=== PATIENT | female | born 2000 | race Caucasian/White ===

== ENCOUNTER 2020-06-01 12:33 | Outpatient (CLI) | payer OTHER, SELFPAY ==
--- NOTE | 2020-06-01 | ECHO_ITS ---
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 Left ventricular chamber dimension is normal. 2. Left ventricular systolic function is normal, estimated at 65-70%. 3. There is no increased left ventricular wall thickness. 4. The left ventricular diastolic function is normal. 5. Right ventricular chamber dimension is mildly enlarged. 6. There is mild mitral valve regurgitation. 7. The mitral valve has thickened leaflets. 8. There is mild tricuspid valve regurgitation. Left Ventricle Left ventricular chamber dimension is normal. Left ventricular systolic function is normal, estimated at 65-70%. There is no increased left ventricular wall thickness. The left ventricular diastolic function is normal. Right Ventricle Right ventricular chamber dimension is mildly enlarged. Right ventricular systolic function is normal. Left Atria Left atrial chamber dimension is normal. Right Atria Right atrial chamber dimension is normal. Atrial Septum Intact interatrial septum visualized by color flow imaging. Aortic Valve The aortic valve is probable trileaflet. There is no aortic valve stenosis. There is trace aortic valve regurgitation. Pulmonic Valve The pulmonic valve is normal. There is no pulmonic valve stenosis. There is trace pulmonic regurgitation. Mitral Valve The mitral valve has thickened leaflets. There is no mitral valve stenosis. There is mild mitral valve regurgitation. Tricuspid Valve The tricuspid valve leaflets are normal. There is no significant tricuspid valve stenosis. There is mild tricuspid valve regurgitation. No pulmonary hypertension, estimated pulmonary arterial systolic pressure is 30 mmHg. Pericardium/Pleural The pericardium appears normal. There is no pericardial effusion. Inferior Vena Cava Normal inferior vena cava with >50% collapse upon inspiration consistent with normal right atrial pressure, 5 mmHg. Aorta The aortic root size at the sinus of Valsalva is normal. Left Ventricular Outflow Tract Name Value Normal LVOT 2D LVOT Diameter 1.9 cm LVOT Doppler LVOT Peak Gradient 7 mmHg LVOT Mean Gradient 4 mmHg LVOT VTI 30 cm LVOT VTI/AV VTI Ratio 1.0 LVOT Stroke Volume 82 ml LVOT CO 5.4 l/min LVOT CI 3.2 l/min/m2 Pulmonic Valve Name
== END 2020-06-01 12:34 | disposition home or self-care (01) ==
PROVIDERS: PCP Nurse Practitioner Adult Health; Visit Provider Nurse Practitioner Adult Health
DX: Q21.9 Congenital malformation of cardiac septum, unspecified (principal); I51.7 Cardiomegaly
CPT/HCPCS: 93306

== ENCOUNTER 2024-06-17 03:43 | Emergency (ER) | payer OTHER, MEDICAID, SELFPAY ==
--- NOTE | ~2024-06-17 | CT_ITS ---
Non-contrast Head CT History: Seizure, colonic activity Technique: Axial non-contrast imaging of the brain was performed. Dose reduction technique was used on this scan by utilizing automated exposure control and iterative reconstruction technique. The dose -length product (DLP) was 605.33 mGy-cm. Findings: There is no evidence of intracranial hemorrhage, mass lesion, or acute infarct. Focal hypo density adjacent to the frontal horn of the left lateral ventricle. Probable focal dilated perivascul ar space in the left basal ganglia versus lacunar infarct. The ventricles and subarachnoid spaces are normal in size. The calvarium appears normal. The visualized paranasal sinuses and mastoid air shi ls are clear. Impression: Nonspecific hypodensity in the white matter adjacent to the frontal horn of the left lateral ventricl e. This could reflect early onset chronic microvascular ischemic change or chronic ischemic insult. M R can be considered for further evaluation as indicated. Reviewed, dictated and finalized at location M. Impression: Nonspecific hypodensity in the white matter adjacent to the frontal horn of the left lateral ventricle. This could reflect early onset chronic microvascular i schemic change or chronic ischemic insult. MR can be considered for further kolby luation as indicated.
--- NOTE | ~2024-06-17 | CT_ITS ---
CT of the Abdomen and Pelvis: Indication: Abdominal pain Technique: 2.5 mm axial scans were obtained through the abdomen and pelvis following intravenous adm inistration of 100 cc of Omnipaque 350. Dose reduction technique was used on this scan by utilizing a utomated exposure control and iterative reconstruction technique. The dose-length product (DLP) was 6 38.94 mGy-cm. Findings: Scans through the lung bases are unremarkable. The liver, spleen, pancreas, gallbladder, adrenals and kidneys are within normal limits. No evidence of aortic aneurysm. No lymphadenopathy. Questionable mild wall thickening of the descending and sigmoid colon versus underdistention. No blank l obstruction. Images through the pelvis were performed. Suspected mild diffuse urinary bladder wall thickening. Rig ht ovarian cyst versus right hydrosalpinx measuring approximately 2.8 cm in length. No ascites. Impression: Questionable mild wall thickening of the descending and sigmoid colon, versus underdistention. Correl ate for infectious/inflammatory colitis. Right ovarian cyst versus right hydrosalpinx. Reviewed, dictated and finalized at location . Impression: Questionable mild wall thickening of the descending and sigmoid colon, versus u nderdistention. Correlate for infectious/inflammatory colitis. Right ovarian cyst versus right hydrosalpinx.
--- OUTSIDE RECORDS SUMMARY | 2024-06-17 03:46 | XMS_ITS | Data Portability ---
Author Organization [place] [facility], Main Office Address [address] [place] [address] Assessment Encounter Date Assessment Date Assessment LastModified by Organization Details LastModified Time 12/05/2022 12/05/2022 The patient gave verbal consent using TeleHealth services and the consent is documented in the medical record prior to using the service. The patient has been informed of what a TeleMedicine visit is. Patient is located at home. Provider is located at office. Names and roles of persons in addition to the patient and provider participating in telemedicine services include mother. The patient had a 8 minute TeleMedicine consultation via [employer] to discuss the following: [email or web address] Not available 12/05/2022 20:17:07 Plan of Treatment Reminders Order Date Submit Date Provider Last Modified By Organization Details Last Modified Time Details Appointments None recorded. Lab TSH + free T4, serum 2022 023 [facility], [address] [place] [address], [address], 3 11:25:07 T3, free, serum or plasma 2022 023 [facility], [address] [place] [address], [address], 3 17:37:24 CMP, serum or plasma 2022 023 [facility], [address] [place] [address] [place], [address], 3 11:25:07 thyroid peroxidase (tpo) Ab, serum 2022 023 [facility], [address] [place] [address] [place], [address], 17:37:24 vitamin B12 + folate, serum or blood 2022 023 [facility], [address] [facility], [place], [address], 11:25:07 Referral endocrinol ogy referral 2022 023 SHEA Chapman MD, [address],, [facility] [address], [address], 20:20:44 Procedures None recorded. Surgeries None recorded. Imaging None recorded. Medication Orders Unithroid 50 mcg tablet 2022 023 [id number], [address] [place], [place], [id number], 20:17:39 Creon 36,000 unit-114,0 00 unit-180,0 00 unit capsule,de layed release [email or web address] [place] [address] [id number], [address] [place], [place], [id number], 17:15:00 Patient TargetsNo targets recorded. Patient Instructions Encounter Date Encounter Id Patient Instructions Last Modified By Organization Details Last Modified Time 12/05/2022 [id number] Due to the COVID-19 (Novel Coronavirus) pandemic, it is within this context (and with the understanding that this method of patient encounter is in the patient s best interest as well as the health and safety of other patients and the public) that telehealth is being provided for this patient encounter rather than a gonm-cu-joxl visit. This patient encounter is appropriate at this time. This patient has been advised of the potential risks and limitations of this mode of treatment (including, but not limited to, the absence of in-person examination) and has agreed to be treated in a remote fashion despite these risks. Any and all of the patient s/patient s family s questions on this issue have been answered, and I have made no promises or guarantees to the patient. The patient has also been advised to contact this office for worsening conditions or problems, and seek emergency medical treatment and/or call 911 if the patient deems either necessary. HPI and/or vitals, if listed, were provided by the patient. Due to the nature of telemedicine, the ability to do physical assessment was limited to what can be accomplished by patient directed telehealth visit based on instruction. Those limits are understood by the patient and myself. Impression is based on history, available information, and physical findings accomplished with telehealth visit. Chronic disease/problem list/medication list reviewed and updated where indicated. Discussed diagnosis, plan including risks, benefits and options of treatment. Advised to call for new, worsening or persistent symptoms. Level of patient risk was of low to mild complexity due to the documented nature of presentation, the information assessment required and the nature of the development of an evaluation and treatment plan as documented. PMH, FHx, SHx, Surgical Hx, Quality Management review carried out and addressed as documented today as part of this visit. Medication list was reviewed and adjusted as indicated. Medication requiring a refill was addressed. Risk and benefits of any new medications were discussed and all questions were answered. [email or web address] Not available 12/05/2022 20:20:30 Reason for Referral Endocrinology Referral for H ypothyroidism Referring Physician: Katelin Luong, Endocrinology, Encounter Date: 12/05/2022 Results Created Date Observation Date Name Description Value Unit Range Abnormal Flag Note LastModifiedBy Organization Detail LastModifiedTime 05/31/19 22 05/30/2021 urina lysis , dipst ick Leukocytes (reference range: negative abdelrahman/ l) Negati ve Not Available [facility] , [address], [place], [address], 05/30/2021 11:09:05 05/31/19 22 05/30/2021 urina lysis , dipst ick Nitrite (reference rage: negative mg/dl) negati ve Not Available [facility], [place], [address], 05/30/2021 11:09:05 05/31/19 22 05/30/2021 urina lysis , dipst ick Urobilinogen (reference range: 0.2-1 mg/dl) 0.2 Not Available [address] , [address], [place], [address], 05/30/2021 11:09:05 05/31/19 22 05/30/2021 urina lysis , dipst ick Protein (reference range: negative mg/dl) Negati ve Not Available [address] , [address], [place], [address], 05/30/2021 11:09:05 05/31/19 22 05/30/2021 urina lysis , dipst ick pH (reference range: 5-7) 6.5 Not Available [address] , [address], [place], [address], 05/30/2021 11:09:05 05/31/19 22 05/30/2021 urina lysis , dipst ick Blood (reference range: negative James/ l) Negati ve Not Available [address] , [address], [place], [address], 05/30/2021 11:09:05 05/31/19 22 05/30/2021 urina lysis , dipst ick Specific [place] (reference range: 1.005-1.030) 1.025 Not Available [address] , [address], [place], [address], 05/30/2021 11:09:05 05/31/19 22 05/30/2021 urina lysis , dipst ick Ketone (reference range: negative mg/dl) Negati ve Not Available [address] , [address], [place], [address], 05/30/2021 11:09:05 05/31/19 22 05/30/2021 urina lysis , dipst ick Bilirubin (reference range: negative mg/dl) Negati ve Not Available [address] , [address], [place], [address], 05/30/2021 11:09:05 05/31/19 22 05/30/2021 urina lysis , dipst ick Glucose (reference range: negative mg/dl) Negati ve Not Available [address] , [address], [place], [address], 05/30/2021 11:09:05 05/31/19 22 05/30/2021 urina lysis , dipst ick Appearance Clear Not Available [address] , [address], [place], [address], 05/30/2021 11:09:05 05/31/19 22 05/30/2021 urina lysis , dipst ick Color Yellow Not Available [address], [place], [address], 05/30/2021 11:09:05 Result Notes None recorded. 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 [facility] Not Available [facility] 3 21:50:06 Transient cerebral ischemia 487205211 Active 2014 TIA vs CVA 5 years ago. Started on aspirin afterwards . Last f/u about 2017 Not Available [facility] 3 21:50:07 Hypothyro idism 52239290 Active 2021 [facility] 21:50:07 Bacterial vaginosis 368265848 Active 2019 Recurrent bacterial vaginosis. 3 eipsodes in past few months. Followed by Dr. Mendoza in [place] Not Available [facility] 3 21:50:07 Low blood pressure 61933281 Active 2021 [facility] 3 21:50:07 Exocrine pancreati c insuffici ency 70282693 Active 2021 Not Available [facility] 3 21:50:07 Anxiety 79862785 Active 2020 [facility] Available [facility] 3 21:50:07 Diarrhea 43857106 Active 2021 Not Available [facility] 3 21:50:07 Rheumatoi d arthritis 38191398 Active 2004 Onset age 3 to 14 yos. Used mutiple meds (Remicade most recent 2014) [facility] Not Available [facility] 3 21:50:07 Problem Notes None recorded. Procedures Surgical History Date Name Laterality Status Provider Name and Address Organization Details Recorded Time assessment using ABCD2 Score for transient ischemic attack completed Not Available [facility] 05/03/2022 21:49:02 procedure on heart completed Not Available [facility] 05/03/2022 21:49:02 Imaging Results None recorded. Procedure Notes None recorded. Medical Equipment None Reported. Allergies Allergen ID Allergen Name Allergen Category Reaction Reaction Severity Criticality Documentation Date Start Date Code Code System Note Provider Name and Address Organization Details Recorded Time 56926 lactose food,medi cation Not available Not available Not available 05/03/2022 6211 RxNorm Not Available [facility] 3 21:51:07 87724 amoxicill in medicatio n hives severe Not available 05/03/2022 723 RxNorm Not Available [facility] 3 21:51:07 Medications Name Sig Start Date Stop Date Status Note LastModified by Organization Details LastModified Time azithromyci n 250 mg tablet TAKE 2 TABLETS (500 MG) BY ORAL ROUTE ONCE DAILY FOR 1 DAY THEN 1 TABLET (250 MG) BY ORAL ROUTE ONCE DAILY FOR 4 DAYS active Not Available Not Available No t Available metronidazo le 500 mg tablet 04/27 completed Not Available Not Available Not Available Unithroid 50 mcg tablet active Not Available Not Available Not Available sertraline 25 mg tablet TAKE 1 TABLET BY MOUTH EVERY DAY AT BEDTIME 06/15 completed Not Available Not Available Not Available Unithroid 25 mcg tablet TAKE 1 TABLET BY MOUTH THREE TIMES DAILY DIRECTED ALTERNATI NG WITH 50 MCG 06/15 completed Not Available Not Available Not Available colestipol 1 gram tablet TAKE 1 TABLET BY MOUTH DAILY. DO NOT TAKE OTHER DRUGS AT LEAST 1 HOUR BEFORE OR 4 HOURS AFTER COLESTIPO L 06/15 completed Not Available Not Available Not Available dicyclomine 10 mg capsule TAKE 1 CAPSULE BY MOUTH TWICE DAILY NEEDED 06/15 completed Not Available Not Available Not Available rosuvastati n 5 mg tablet 04/27 completed Not Available Not Available Not Available ramelteon 8 mg tablet Take by oral route for 30 days. 06/15 completed Not Available Not Available Not Available Asprin Ec Low Dose 80 MG PO ONCE DAILY 2019 active OTC Not Available Not Available Not Avai lable Creon 36,000 unit-114,00 0 unit-180,00 0 unit capsule,del ayed release TAKE 1 CAPSULE BY MOUTH WITH EACH MEAL x 90 days 12/05 completed Not Available Not Available Not Available Viberzi 75 mg tablet Take 1 tablet every day by oral route with meals. active Not Available Not Available No t Available Fiber Gummies 2 gram chewable tablet Take 2 tablets twice a day by oral route in the morning. active Not Available Not Available No t Available melatonin 5 mg chewable tablet Take 5 mg every day by oral route at bedtime. active Not Available Not Available No t Available Zenpep 40,000 unit-126,00 0 unit-168,00 0 unit capsule,del ayed release TAKE 1 CAPSULE BY MOUTH THREE TIMES DAILY BEFORE MEALS 06/15 completed Not Available Not Available Not Available Flucelvax Quad (PF) 60 mcg (15 mcg x 4)/0.5 mL IM syringe ADM 0.5ML IM UTD 04/27 completed Not Available Not Available Not Available Vitals Date Recorded Body mass index (BMI) Body height Oxygen saturation Oxygen saturation in Arterial blood by Pulse oximetry Heart rate Body temperature Body weight Systolic blood pressure Diastolic blood pressure Provider Name and Address Organization Details Last Updated DateTime 2 27.5 kg/m2 165.1 cm 99 % 99 % 77 /min 97.8 [degF] 75762.7 4 g 90 mm[Hg] 70 mm[Hg] Not Available [facility] 3 21:49:07 Date Recorded Body height Provider Name an d Address Organization Details Last Updated DateTime 01/25/2022 165.1 cm Not Available [facility] 3 21:49:08 Date Recorded Body height Body mass index (BMI) Body weight Body temperature Respiratory rate Heart rate Systolic blood pressure Diastolic blood pressure Provider Name and Address Organization Details Last Updated DateTime 3 165.1 cm 27.6 kg/m2 67391.3 3 g 97.7 [degF] 18 /min 66 /min 97 mm[Hg] 63 mm[Hg] AMARIS Cheung [employer] 3 17:21:42 Date Recorded Body height Body mass index (BMI) Body weight Provider Name and Address Organization Details Last Updated DateTime 12/05/2022 165.1 cm 27.5 kg/m2 35428.74 g joseph garrido [employer] 12/05/2022 17:17:04 Social History Question Answer Notes LastModified by Organizat ion Details LastModified Time Tobacco Smoking Status Never Smoker Not Available [facility] 05/03/2022 21:48:45 Do You Have An Advance Directive? No [id number] Information not available 05/03/2022 What Is Your Level Of Alcohol Consumption? None [id number] Information not available 05/03/2022 What Is Your Level Of Caffeine Consumption? Occasional [id number] Information not available 05/03/2022 In The 14 Days Before Symptom Onset, Have You Had Close Contact With A Laboratory-confirm ed COVID-19 While That Case Was Ill? No [id number] Information not available 05/03/2022 In The 14 Days Before Symptom Onset, Have You Had Close Contact With A Person Who Is Under Investigation For COVID-19 While That Person Was Ill? No [id number] Information not available 05/03/2022 What Type Of Diet Are You Following? REGULAR [id number] Information not available 05/03/2022 Do You Have A Medical Power Of Employment Adjudicator? No [id number] Information not available 05/03/2022 Do You Use Any Illicit Or Recreational Drugs? No [id number] Information not available 05/03/2022 Have You Recently Traveled Abroad? No [id number] Information not available 05/03/2022 Sex: Female Functional Status Question Answer Note LastModified by Organizat ion Details LastModified Time What is your exercise level? None [id number] Information not available 05/03/2022 Mental Status None recorded. Family History Relationship Description Onset Age of this Age Resolved Age Notes LastModified by Organization Details LastModified Time Maternal Grandmother Family history of malignant neoplasm breast cancer , kidney cancer [id number] Not available 05/03/2022 21:49:02 Maternal Grandmother Chronic obstructive pulmonary disease MIGRATION.413 [id number] Not available 05/03/2022 21:49:02 Maternal Grandmother Irritable bowel syndrome [id number].564 [id number] Not available 05/03/2022 21:49:02 Maternal Grandfather Family history of malignant neoplasm lung, brain [id number].608 [id number] Not available 05/03/2022 21:49:02 Mother Family history of malignant neoplasm thyroi d, sprina l cord MIGRATION.066 [id number] Not available 05/03/2022 21:49:02 Paternal Grandmother Family history of malignant neoplasm append ix [id number].368 [id number] Not available 05/03/2022 21:49:02 Paternal Grandfather Diabetes mellitus MIGRATION.806 [id number] Not available 05/03/2022 21:49:02 Medical History Condition Response BOWEL PROBLEMS Y STROKE/TIA Y OBESITY Y Gynecological HistoryNo gynecological history recorded. Obstetrics History GPAL:G 0 P 0 0 0 0 Immunizations Vaccine Type Date Status Note Provider Nam e and Address Organization Details Recorded Time Influenza, split virus, quadrivalent, preservative 0 completed Not Available [facility] 05/03/2022 21:51:03 HPV9 2 completed Not Available [facility] 05/03/2022 21:51:03 Influenza, split virus, quadrivalent, PF 1 completed Not Available [facility] 05/03/2022 21:51:03 Influenza, split virus, quadrivalent, PF 2 completed Not Available [facility] 05/03/2022 21:51:04 Past Encounters Encounter ID Performer Location Encounter Start Date Encounter Closed Date Diagnosis/Indication Diagnosis SNOMED-CT Code Diagnosis ICD10 Code Diagnosis Note [id number] [facility] [address] [place] [address] 12/20/2020 00:00:00 12/20/2020 16:32:15 [id number] [facility] [place] [address] 05/30/2021 00:00:00 05/30/2021 11:44:07 [id number] [facility] [address] [place] [address] 06/14/2021 00:00:00 06/14/2021 19:45:04 [id number] [facility] [address] [place] [address] 09/06/2021 00:00:00 09/06/2021 13:07:51 [id number] [facility] [place] [address] 01/25/2022 00:00:00 02/21/2022 11:07:52 [id number] Katelin Luong MD [facility] [address] [place] [address] 06/15/2022 16:55:37 06/15/2022 17:48:35 Hypothyroidism 14762983 E03.9 Send for repeat labwork to assess need to modify therapy further. continue unithroid 50 mcg daily. She was reminded to take her unithroid on empty stomach with glass of water and wait one hour to eat or have her coffee in morning and up to 4 hours if ever taking any heartburn or reflux medication s to help optimize absorption . Discussed paleo like diet with restrictio n of GMOs to help with energy and to optimize absorption of vitamins and minerals and reduce inflammati on. Exocrine p ancreatic insufficiency 83642850 K86.81 elastase low with weight fluctuatio ns and diarrhea is continuous in the nights now- better during the days- following Dr. Barajas for IBS- trial on creon to see if this will further help with malabsorpt ion. Spent up to 25 minutes preparing to see the patient (eg, review of tests), obtaining and/or reviewing separately obtained history, performing a medically appropriat e examinatio n and evaluation , counseling and educating the patient, ordering medication s, tests, along with documentin g clinical informatio n in the electronic health record, independen tly interpreti ng results and communicat ing results to the patient. RTC in 6 months. Patient was provided a handwritte n lab order which contains our fax number. If she chooses to go outside of the [facility] system to obtain labwork she was advised to provide our fax number and my informatio n to the lab she will be obtaining labwork from in order to have her labs properly forwarded over for me to review so there is no loss of follow up due to use of outside network. She was also advised to contact our clinic informing us that she has completed her labwork so we are aware we will need to reach out to the appropriat e laboratory to request her results be forwarded to us so I might have the ability to review and make further medical decision making in her case. She voiced understand ing. [id number] Katelin Luong MD [facility] [place] [facility] [address] [place] [address] 12/05/2022 16:54:16 12/05/2022 17:34:33 Hypothyroidism 93774777 E03.9 Thyroid levels in range. continue unithroid 50 mcg daily. She was reminded to take her unithroid on empty stomach with glass of water and wait one hour to eat or have her coffee in morning and up to 4 hours if ever taking any heartburn or reflux medication s to help optimize absorption . Discussed paleo like diet with restrictio n of GMOs to help with energy and to optimize absorption of vitamins and minerals and reduce inflammati on. Refer to endocrinol ogy per patient request. Spent up to 15 minutes preparing to see the patient (eg, review of tests), obtaining and/or reviewing separately obtained history, performing a medically appropriat e examinatio n and evaluation , counseling and educating the patient, ordering medication s, tests, along with documentin g clinical informatio n in the electronic health record, independen tly interpreti ng results and communicat ing results to the patient. Patient can be followed by PCP - she/he is aware of my resignatio n and last day of December 15. If needed his/her PCP can refer patient to another endocrinol ogist in the area. All questions /concerns answered and refills necessary at visit today. Health Concerns Section Related Observation LastModified by Organization Detai ls LastModified Time None Recorded Concern Status LastModified by Organization Details LastModified Time None Recorded Advance Directives Directive N: Payers Encounter Date Sequence Insurance Name Policy Number Policy Díaz Covered Member ID Díaz Member ID Guarantor Name 06/15/2022 1 [facility] [id number] Angel Sandoval [id number] [facility] 06/15/2022 2 [place] [employer] [place] [employer] [facility] [id number] [facility] 12/05/2022 1 [facility] [id number] Angel Sandoval [id number] [facility] 12/05/2022 2 [place] [facility] [id number] [facility] Notes Date Note Type Note Provider Name and Address Organization Details Recorded Time 06/15/2022 text/html 22 yo female com es in for follow up in management of hypothyroidism and insomnia found to have 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 last seen/telehealth in September at that time we trialed ramelteon for sleep. we had patient continue LT4 25 mcg on Sunday, Sunday, Sunday and 50 mcg on Sunday, , Sunday, Sunday. She is seeing gastroenterology for IBS and taking viberzi 75 mg twice daily - per aunt her diarrhea is less- only at night time. She took creon before meals and didn't help. She is taking unithroid 50 mcg daily. She does feel more fatigued than usual-we did increase her unithroid to 50 mcg based on her march labs but due for repeat labs. She has lost some weight but getting close to 170 pounds. labs from 04/04/22:TSH of 3.130 uIU/mlFT4 of 1.08 ng/dLglucose 85 mg/dLCr normalLFT poovxjG25/folate low normal rangeTPO 66 IU/mlFT3 of 2.7 pg/mL elastase low at 188 ug/g (LOW) Katelin Luong MD [address], [address], [place], [address], [employer] 06/15/2022 18:14:09 12/05/2022 text/html 22 yo female jimmie ls in today to initiate telehealth visit to discuss progress and management of hypothyroidism and EPI. last seen in June at that time we continued unithroid 50 mcg daily and we added creon for diarrhea. she is taking the viberzi. She gets diarrhea maybe 1-2 times a week at most and not significant. She is doing well and energy is good overall. She is going to school a few days a week. labs from 11/25:TSH of 0.851 uIU/mlFT4 of 1.04 ng/dLglucose 87 mg/dLCr normalLFT normalTPO high Katelin Luong MD [address], [address], [place], [address], [employer] 12/05/2022 20:20:48 OBGyn Episode No OBEpisode recorded.
--- OUTSIDE RECORDS SUMMARY | 2024-06-17 03:46 | XMS_ITS | Clinical Summary ---
Author Organization [facility] [employer] Address [address] [place] [address] Care Team Providers Care Senior It Assistant Name Role Phone Unavailable Primary Care Provider Unavailabl e Source Comments [facility] [employer],non-owned Affiliates and Associated Physician Practices is amultiple site organization consisting of ambulatory clinics and hospital sitesin [place], [place], [place] and [place]. This disclosure is being madepursuant to the Care Everywhere program and may not contain all information available regarding this patient. Last updated 17.[employer] Allergies No known active allergies Medications * Be aware that medications may not be up to date on this document. Alwaysverify current medications with the patient. aspirin (ASPIRIN) 325 MG tablet Take 325 mg by mouth once daily Active Family History Medical History Relation Name Comments Cancer - Other Mother spinal cord c ancer Relation Name Status Comments Mother Social History Tobacco Use Types Packs/Day Years Used Date Smoking Tobacco: Never Smokeless Tobacco: Never Comments Unknown Sex and Gender Information Value Date Recorded Sex Assigned at Not on file Legal Sex Female 9:03 PM [employer] Gender Identity Not on file Sexual Orientation Not on file Last Filed Vital Signs Vital Sign Reading Time Taken Comments Blood Pressure 110/68 01/12/2018 11:02 AM [employer] Pulse 80 01/12/2018 11:02 AM [employer] Temperature 36.7 C (98 F) 01/12/2018 11:02 AM [employer] Respiratory Rate 16 01/12/2018 11:02 AM [employer] Oxygen Saturation 98% 01/12/2018 11:02 AM [employer] Inhaled Oxygen Concentration - - Weight 80.7 kg (178 lb) 01/12/2018 11:02 AM [employer] Height 160 cm (5' 3 ) 01/12/2018 11:02 AM [employer] Body Mass Index 31.53 01/12/2018 11:02 AM [employer] Plan of Treatment Health Maintenance Due Date Last Done Comments PAP SMEAR 1999 HIV SCREENING 05/03/2014 HPV VACCINE (1 - 3-dose series) 05/03/2014 CHLAMYDIA/GONORRHEA SCREENING 2015 HEPATITIS C SCREENING 04/29/2017 DTAP/TDAP/TD VACCINES (1 - Tdap) 05/03/2018 HEPATITIS B VACCINE (1 of 3 - 19+ 3-dose series) 05/03/2018 COVID-19 VACCINE (1 - 2023-2 5 season) 2023 DEPRESSION SCREENING 03/05/2024 INFLUENZA VACCINE (Season Ended) 2024 ZOSTER VACCINE (1 of 2) 05/03/2049 HIB VACCINE Aged Out No longer eligi ble based on patient's age to complete this topic MENINGOCOCCAL (Group B) VACC INE SHARED DECISION-MAKING Aged Out No longer eligibl e based on patient's age to complete this topic MENINGOCOCCAL GROUPS A/C/Y/W VACCINE Aged Out No longer eligible b ased on patient's age to complete this topic PNEUMOCOCCAL VACCINE Aged Out No long er eligible based on patient's age to complete this topic Insurance
--- OUTSIDE RECORDS SUMMARY | 2024-06-17 03:46 | XMS_ITS | Data Portability ---
Author Organization [facility] Address [address] [place] [address] [place] [address] Assessment Encounter Date Assessment Date Assessment LastModified by Organization Details LastModified Time 03/01/2021 03/01/2021 healthy female exam not sexually active pap done contraception - abstinence HPV vaccine-done FU 1 year or prn [email or web address] Not available 03/01/2021 11:57:43 Plan of Treatment Reminders Order Date Submit Date Provider Last Modified By Organization Details Last Modified Time Details Appointments None recorded. Lab urinalysis , dipstick 2020 0[address] [facility], [facility] [address], [place], [address], 11:31:52 Referral None recorded. Procedures None recorded. Surgeries None recorded. Imaging None recorded. Medication Orders None recorded. Patient TargetsNo targets recorded. Patient InstructionsNo instructions recorded. Reason for Referral None Reported. Results Created Date Observation Date Name Description Value Unit Range Abnormal Flag Note LastModifiedBy Organization Detail LastModifiedTime 03/01/20 21 03/01/2021 IMAGE GUIDE D PAP, REFLE X HPV IF ASCUS ONLY image guided Pap, reflex HPV ASCUS only SEE RESULT S BELOW CASE REPOR T: Cytol ogy Gynec ologi jimmie Repor t Case: [id number] Autho sarah g Provi federico: Ngozi Morton MD Colle cted: 03/01 1209 Order ing Locat ion: [place] [facility] Recei ko: 03/02 0712 First Scree n: , Bansi , CT Speci men: Scree bren Pap - Image d, Cervi x STATE MENT OF ADEQU ACY: Satis facto ry for evalu ation Trans forma tion zone compo nent prese nt FINAL DIAGN OSIS: Negat reagan for Intra epith elial Lesio paul or Hamida pathak (NIL) . Elect patricio cancino karlo d by Darren Joshi , CT on 022 at 5:50 PM ----- ----- ----- ----- ----- ----- ----- ----- ----- ----- ----- ----- ----- ----- ----- ----- ----- ---- COMME NT: Note: This speci men was revie wed by a Cytot echno logis t and/o r Patho logis t (as indic ated in this repor t) after evalu ation using the Thinp rep Imagi ng Syste m. CLINI JIMMIE INFOR MATIO N: Menst rual Statu s: LMP (if appli cable ): Clini jimmie Histo ry/Pr eviou s Pap: Type of Neopl nichelle (if appli cable ): Signi fican t Clini jimmie Findi ngs: Other Histo ry: Hormo kelton (if appli cable ): PAP EDUCA CHETAN L NOTE: The Pap Test is a scree bren test with an inher ent false negat reagan rate. Liqui d-bas e sampl ing may decre ase, but will not elimi morgan, false negat reagan resul ts. A negat reagan resul t does not precl ude the prese nce and/o r devel opmen t of disea se, since the prese nce of abnor mal cells in the sampl e depen ds on the locat ion of the lesio n and sampl ing techn ique. Leonor nued regul ar scree bren is the best metho d of cance r preve ntion . If repor ricardo cytol ogic findi ng do not corre late with physi jimmie and/o r histo rical findi ngs, furth er inves tigat ion is recom catrachito d, as clini mackenzie warra nted. Not Available [facility] (Lab) [address], [place], [address], 03/09/2021 18:52:34 03/01/20 21 03/01/2021 TRICH OMONA S VAGIN MARYELLEN (RRNA ) trichomonas vaginalis ribosomal RNA (rrna) Negati ve negati ve Not Available [facility] (Lab) [address], [place], [address], 03/09/2021 18:52:35 03/01/20 21 03/01/2021 CT/GC (DENNY) , THINP REP VIAL chlamydia trachomatis, PCR Negati ve negati ve Not Available [facility] (Lab) [address], [place], [address], 03/09/2021 18:52:35 03/01/20 21 03/01/2021 CT/GC (DENNY) , THINP REP VIAL neisseria gonorrhoeae, PCR Negati ve negati ve Not Available [facility] (Lab) [address], [place], [address], 03/09/2021 18:52:35 03/01/20 21 03/01/2021 urina lysis , dipst ick Leukocytes neg Not Available [facility] [address], [place], [address], 03/01/2021 11:31:31 03/01/20 21 03/01/2021 urina lysis , dipst ick Nitrite neg Not Available [facility] [address], [place], [address], 03/01/2021 11:31:31 Result Notes None recorded. Problems Name Problem SNOMED Code Status Onset Date Resolution Date Notes Provider Name and Address Organization Details Recorded Time Finding of pattern of menstrua l cycle 347856138 Completed 201803/01/2021 Metrorrh agia;Rec orded Elsewher e: No Locat ion: L[facility] S ource: EHR Postmaster Relief pepe: N Practi ce ID: [id number] Mak lable Time: 09:00:00 AM Ngozi Porter MD [address], [place], [address], [facility] 11:31:[address] Concept Completed 201803/01/2021 Encntr for general adult medical exam w/o abnormal findings ;Recorde d Elsewher e: No Locat ion: [facility] S ource: EHR Postmaster Relief pepe: N Practi ce ID: [id number] Mak lable Time: 09:00:00 AM Ngozi Porter MD [address], [place], [address], [facility] 11:31:[address] Concept Completed 201903/01/2021 Encntr for prep manager exam (general ) (routine ) w/o abn findings ;Recorde d Elsewher e: No [facility]at ion[facility] S ource: EHR Postmaster Relief pepe: N Eulaliati ce ID: [id number] Mak lable Time: 10:00:00 AM Ngozi Porter MD [address], [place], [address], [facility] 11:31:26 Acute vaginiti s 65960990 Completed 201903/01/2021 Vaginiti s;Record ed Elsewher e: No Locat ion: [facility] S ource: EHR Postmaster Relief pepe: N Practi ce ID: [id number] Mak lable Time: 10:00:00 AM Ngozi Porter MD [address], [place], [address], [facility] 11:31:18 Evaluati on finding Completed 201803/01/2021 Hematuri a, unspecif ied;Jose rded Elsewher e: No Locat ion: [facility] S ource: EHR Postmaster Relief pepe: N Practi ce ID: [id number] Mak lable Time: 09:00:00 AM Ngozi Porter MD [address], [place], [address], [facility] 11:31:20 Urinary tract infectio us disease 06372684 Completed 201803/01/2021 UTI;Jose rded Elsewher e: No Locat ion: [facility] S ource: EHR Postmaster Relief pepe: N Practi ce ID: [id number] Mak lable Time: 09:00:00 AM Ngozi Porter MD [address], [place], [address], [facility] 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 11:32:28 Problem Notes None recorded. Procedures Surgical History Date Name Laterality Status Provider Name and Address Organization Details Recorded Time 03/05/200 0 open heart surgery completed Qian Ac [facility] 12/14/2020 09:13:39 Imaging Results None recorded. Procedure Notes None recorded. Medical Equipment None Reported. Allergies Allergen ID Allergen Name Allergen Category Reaction Reaction Severity Criticality Documentation Date Start Date Code Code System Note Provider Name and Address Organization Details Recorded Time 96338 amoxicill in medicatio n hives Not available Not available 02/20/2020 723 RxNorm React ion: hives ; Comme nt: [facility]; [facility] Available [facility] 0 14:14:50 46047 tree and shrub pollen environme nt,medica tion Not available Not available Not available 02/20/2020 45033 UNK Comme nt: [facility]; Not Available [facility] 0 14:14:50 Medications Name Sig Start Date Stop Date Status Note LastModified by Organization Details LastModified Time Macrobid 100 mg capsule take 1 capsule by oral route every 12 hours with food 05/07 completed Prescrib ed Elsewher e: No Locat ion: [facility] odify By: shahid mulligan DateTime : 08/15/19 04:07:14 PM Not Available Not Available Not Available Metrogel Vaginal 0.75 % (37.5 mg/5 gram) insert 1 applicat orful by vaginal route every day at bedtime 05/07 completed Prescrib ed Elsewher e: No [facility]ify By: shahid mulligan DateTime : 05/08/19 10:35:55 AM Not Available Not Available Not Available Flagyl 500 mg tablet take 1 tablet by oral route every 12 hours 12/14 completed Prescrib ed Elsewher e: No Locat ion: [facility] odify By: mando chung DateTime : 05/13/19 11:09:10 AM Not Available Not Available Not Available levothyro xine 50 mcg tablet TAKE 1 TABLET BY MOUTH DAILY active Not Available Not Available No t Available sertralin e 25 mg tablet TAKE 1 TABLET BY MOUTH EVERY DAY AT BEDTIME active Not Available Not Available No t Available aspirin 81 mg chewable tablet chew 1 tablet by oral route every day active Prescrib ed Elsewher e: Yes Loca tion: [facility] odify By: [email or web address] Encount er DateTime : 05/04/19 09:00:00 AM Not Available Not Available Not Available dicyclomi ne 10 mg capsule TAKE 1 CAPSULE BY MOUTH TWICE DAILY NEEDED 03/01 completed Not Available Not Available Not Available Bactrim DS 800 mg-160 mg tablet take 1 tablet by oral route every 12 hours 05/07 completed Prescrib ed Elsewher e: No Locat ion: [facility] odify By: shahid iglesiasunter DateTime : 05/04/19 09:00:00 AM Not Available Not Available Not Available rosuvasta tin 10 mg tablet take 1 tablet by oral route every day 05/07 completed Prescrib ed Elsewher e: Yes Loca tion: [facility] odify By: shahid iglesiasuntrosanne DateTime : 05/04/19 09:00:00 AM Not Available Not Available Not Available Vitals Date Recorded Body height Body mass index (BMI) Body weight Systolic blood pressure Diastolic blood pressure Provider Name and Address Organization Details Last Updated DateTime 03/01/2021 160.02 cm 29.2 kg/m2 43751.74 g 107 mm[Hg] 72 mm[Hg] [facility] 11:26:36 Social History Question Answer Notes LastModified by Organizat ion Details LastModified Time Tobacco Smoking Status Never Smoker Qian Ac [facility], [facility] 12/14/2020 09:14:13 What Is Your Level Of Alcohol Consumption? None Information not available 12/14/2020 Do You Use Any Illicit Or Recreational Drugs? No Information not available 12/14/2020 Has Tobacco Cessation Counseling Been Provided? No Information not available 12/14/2020 Do You Or Have You Ever Used Any Other Forms Of Tobacco Or Nicotine? No Information not available 12/14/2020 Sex: Unknown Functional Status None recorded. Mental Status None recorded. Family History Nothing Reported Notes:Brother: High choleste rol Father: Hypertension Maternal aunt: Anxiety, ovarian cyst, Infertility, night terrors, Depression, Polycystic ovarian syndrome Maternal grandfather: Cancer, brain, Cancer, lung Maternal grandmother: Polycystic ovarian syndrome, Heart disease, Cancer, renal cell, Anemia, Cancer, breast, occ, tilted uterus, Grave's disease, ovarian cyst, Bleeding disorder, Depression Mother: Hypertension, occ, Anemia, Asthma, Polycystic ovarian syndrome, Infertility, ovarian cyst, tilted uterus, Thyroid disease, Depression, spinal cord cancer Paternal grandfather: High cholesterol, Diabetes mellitus Paternal grandmother: Cancer, colon Sister: Anemia Medical History Condition Response Other N Blood Transfusion N Dermatologic Disorders N Gestational Diabetes N Anxiety Disorder N Autoimmune disease N Arthritis N Polyps N Infertility N Acid Reflux (GERD) N Cancer N Varicosities N Stroke Y Neurologic/Epilepsy N Fibromyalgia N Headaches N Kidney Disease N Heart Problems N Kidney or Bladder Problems N Eating Disorder N Art (IVF or FET) N Hepatitis/Liver Disease N No Past Medical History N Urinary Tract Infection N Asthma N Trauma/Violence N Thrombophilias N Allergies (Food, seasonal, environmental ) N Breast Cancer N Drug/Latex Allergies/Reactions N Lung Disease N Defects or Inherited Disease N Breast Problem N Hematologic disorders N Anesthesia Complications N History of STI N Deep Vein Thrombosis N Polycystic ovary syndrome N History of abnormal pap N Endometriosis N High Cholesterol Y Thyroid Problems N GI Problems N Anemia N Psychiatric Illness N Ovarian Cancer N Diabetes N Pulmonary (TB, Asthma) N Eczema N Abuse/Domestic Violence N Depression/ depression N Heart Disease N Pre-Eclampsia N Hypertension N Osteoporosis N Gynecological History Statement/Question Response Current Control Method None Date of LMP 02/15/2021 Obstetrics History GPAL:G 0 P 0 0 0 0 Past Encounters Encounter ID Performer Location Encounter Start Date Encounter Closed Date Diagnosis/Indication Diagnosis SNOMED-CT Code Diagnosis ICD10 Code Diagnosis Note [id number] Ngozi Porter MD [facility] [address] [address] 03/01/2021 10:56:15 03/01/2021 12:05:57 Gynecologic examination 68648528 Z01.419 Health Concerns Section Related Observation LastModified by Organization Detai ls LastModified Time None Recorded Concern Status LastModified by Organization Details LastModified Time None Recorded Advance Directives Directive None Recorded Payers Encounter Date Sequence Insurance Name Policy Number Policy Díaz Covered Member ID Díaz Member ID Guarantor Name 03/01/2021 1 [facility] [id number] Angel Sandoval [id number] Geraldine Sandoval 03/01/2021 2 [place] [facility] OF PUBLIC AID Geraldine Sandoval [id number] Geraldine Sandoval Notes Date Note Type Note Provider Name a nd Address Organization Details Recorded Time 03/01/2021 text/html Patient is a 20yo G0 who presents for an annual exam. last pap-none sexually active-never HPV vaccine-yes contraception-n o sex seatbelts-y exercise-yes depression-zafar es domestic violence-denies tobacco-n concerns-no Ngozi Porter MD [address], [place], [address], [facility] 03/01/2021 11:58:33 OBGyn Episode No OBEpisode recorded.
--- NOTE | 2024-06-17 03:58 | ED_ITS ---
HPI - Abdominal Pain General Chief Complaint: Abdominal Pain Stated Complaint: ABD PAIN Time Seen by Provider: 06/17/24 03:56 Source: patient and family (father) Mode of arrival: ambulatory Limitations: other (developmentally delayed) History of Present Illness HPI narrative: Patient presents with lower abdominal pain, right sided primarily. She has a history of chronic diarrhea, for weeks/months. Diagnosed with IBS but planning upcoming colonoscopy in July to assess further. GI through Man. Also concern because while patient was on the toilet she lost consciosness and dad witnessed her having seizure like activity with shaking in her upper extremities. This lasted a few seconds and when she awoke she was back to baseline. No incontinence of bowel or bladder. No tongue trauma. Dad noted she appeared pale. 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 Dad notes they had been warned that she might have seizures because she had a series of strokes when she was 15yo, no prior stroke though and not on antiepileptic medication. Not on anticoagulation, only 81mg aspirin. No nausea/vomiting. LILLIAN dinner. LMP in May. No bloody stools. No prior abdominal surgeries. No recent antibiotics or travel. Related Data Home Medications ?Medication ?Instructions ?Recorded ?Confirmed ?Last Taken ?Type aspirin 81 mg tablet,delayed 81 mg PO DAILY 01/14/20 06/17/24 Unknown History release (Adult Low Dose Aspirin) multivitamin combination no.56 1 tablet PO DAILY 01/14/20 06/17/24 Unknown History (Titus-Life Multivitamin chewable tablet) psyllium husk 0.4 gram capsule 0.4 g PO DAILY 01/14/20 06/17/24 Unknown History (Daily Fiber) lactase 9,000 unit tablet 9,000 unit PO ONCE 03/15/22 06/17/24 Unknown History melatonin 10 mg tablet 10 mg PO QHS 03/15/22 06/17/24 Unknown History Allergies Allergy/AdvReac Type Severity Reaction Status Date / Time Penicillins Allergy Mild hives Verified 06/17/24 10:47 PMFSH Past Medical History Medical History Abdominal pain Diarrhea Heart chamber dysfunction Thyroid disease Stroke Anemia Arthritis Depression Surgical History Surgical History History of heart surgery Family History Family History Mother Thyroid cancer Spinal cord cancer Father Diabetes mellitus Social History Social History Smoking status: Never smoker Second hand tobacco smoke exposure: No Alcohol intake: never Substance use: never Lack of Transportation: No Lack of Food: Never True Current Housing: I Have Housing Concerned About Future Housing: No Difficulty Paying Gas/Electric Bills: No Difficulty Paying for Meds: No Currently Unemployed: No Education: High School Diploma/GED Difficulty w/ Childcare or Family Care: No Living arrangements: with family Spiritual care concerns: No Exam 2 Narrative: GENERAL: Well-appearing, well-nourished, and in no acute distress. Down syndome facies. Pale. HEAD: Normocephalic, atraumatic. EYES: Non injected, non icteric ENT: Nares clear, no rhinorrhea or epistaxis. Long tongue (suspect hypotonia rather than macroglossia); protrudes midline without deviation. Moist mucous membranes. No tongue trauma. NECK: Supple. CHEST: Speaking in full sentences. No respiratory distress. HEART: Regular rate and rhythm. . ABDOMEN: Soft, nondistended. Points to RLQ though closer to right iliac fossa but no tenderness to deep palpation here, no localized peritonitis/McBurney sign negative. No other TTP, rigidity / guarding. Not peritoneal. EXTREMITIES: Normal range of motion. No lower extremity edema. SKIN: Warm, dry, no rash. NEURO: No focal deficits. Alert and oriented x3. PSYCH: Normal mood and affect. Course Vital Signs Vital signs: Vital Signs Oxygen Delivery Room Air 06/17/24 03:44 Temperature 97.8 F 06/17/24 06:41 Pulse Rate 72 06/17/24 06:43 Respiratory Rate 13 06/17/24 06:41 Blood Pressure 102/57 L 06/17/24 06:43 Pulse Oximetry 100 06/17/24 06:41 Oxygen Delivery Room Air 06/17/24 03:44 MDM - Abdominal Pain MDM Narrative Medical decision making narrative: Patient presents with abdominal pain, primarily RLQ. She has had chonic diarrhea for which scheduled for colonoscopy in July. There was concern for loss of consciousness and muscle tone while on the toilet earlier and father witnessed seizure like activity. Describes upper extremity shaking but immediate return to baseline after being unresponsive fora few seconds. No incontinence bowel/bladder or tongue trauma. In the emergency department she is hypotensive but with appropriate mean arterial pressure. Will give 1 L IV fluids nonetheless, especially given strong consideration of syncope. Lactic acid was normal. This, combined with patient's immediate return to baseline does support syncope over seizures although her history of stroke certainly puts her at risk for more concerning etiology. If syncope, suspect more benign etiolgoies such as vasovagal (given having just had a bowel movement) versus orthostatic. The shaking could have represented myoclonic jerks and this is explained to patient/father, although with a recognition of the uncertainty and the need to pursue a broader work up given her risk factors/history. [place] Syncope Rule: Congestive heart failure history: 0 Hematocrit <30%: 0 EKG abnormal (changed or any non-sinus rhythm): 0 SOB symptoms: 0 SBP <90mmHg at triage: 0 Ortho stats reviewed and acceptable. Discussed patient's workup with her and her father. Discussed the reassuring factors, the advice to proceed with colonoscopy for better differentiation of possible etiologies for patient's baseline chronic diarrhea. Discussed the risks/benefits of NSAIds for the ovarian cyst versus possibly aggrevating GI symptoms, etc. Feel comfortable with discharge at this time and will follow up with providers. Patient has previously seen her mother's ObGyn father believes, though not certain who. Differential Diagnosis Differential diagnosis: Likely abdominal pain, acute appendicitis, calculus of kidney, constipation, diverticulitis, endometriosis, pancreatitis and other (also spectrum of syncope etiologies versus seizure) Medical Records Attestation: I reviewed the patient's medical records. Medical records narrative: Reviewed GI note Lab Data Attestation: I reviewed the patient's lab results. Lab results narrative: Normal kidney function. No marked electrolyte abnormalities 06/17/24 04:32 06/17/24 04:03 Labs: Lab Results 06/17/24 06/17/24 06/17/24 Range/Units 04:03 04:32 05:09 WBC 5.9 (4.5-10.0) K/mm3 RBC 3.63 L (4.2-5.4) M/mm3 Hgb 12.6 (12.0-15.0) g/dL Hct 37.8 (37.0-47.0) % MCV 104.1 H (80-100) fl MCH 34.7 H (26-34) pg MCHC 33.3 (32-36) g/dl RDW 13.5 (11.5-14.5) % Plt Count 196 (150-375) k/mm3 MPV 10.9 H (7.4-10.4) fl Immature Gran % (Auto) 0.2 (0-0.5) % Neut % (Auto) 68.4 (45.5-73.1) % Lymph % (Auto) 22.1 (18.3-44.2) % Worth % (Auto) 8.2 (2.6-8.5) % Eos % (Auto) 0.3 (0-4.4) % Baso % (Auto) 0.8 (0.2-1.2) % Lymph # (Auto) 1.31 (0.9-3.2) K/mm3 Worth # (Auto) 0.5 (0.1-0.6) K/mm3 Eos # (Auto) 0.0 (0-0.3) K/mm3 Baso # (Auto) 0.1 (0.0-0.1) K/mm3 Abs Immat Gran (auto) 0.01 (0.00-0.031) K/mm3 Absolute Neuts (auto) 4.1 (1.3-6.7) K/mm3 Absolute Nucleated RBC 0.000 (0.0-0.012) K/mm3 Nucleated RBC % 0.0 (0.0-0.2) % Sodium 141 (137-145) mmol/L Potassium 3.7 (3.4-5.0) mmol/L Chloride 105 (98-107) mmol/L Carbon Dioxide 29 (22-30) mmol/L Anion Gap 7 (4-12) mmol/L BUN 11 (7-17) mg/dL Creatinine 0.69 L (0.7-1.0) mg/dL Estim Creat Clear Calc 108 ml/min Estimated GFR > 60 (59 - ) Glucose 93 (65-110) mg/dL Lactic Acid 2.0 (0.7-2.0) mmol/L Calcium 8.7 (8.4-10.2) mg/dL Magnesium 2.0 (1.6-2.3) mg/dL Total Bilirubin 0.7 (0.2-1.3) mg/dL AST 25 (14-36) U/L ALT 13 (6-35) U/L Alkaline Phosphatase 46 (38-126) U/L Total Protein 7.0 (6.3-8.2) g/dL Albumin 3.9 (3.5-5.1) g/dL Lipase 53 (23-300) U/L Urine Color Yellow (Yellow) Urine Appearance Clear (Clear) Urine pH 6.0 (5.0-9.0) Ur Specific [place] 1.012 (1.001-1.035) Urine Protein Negative (Negative) mg/dL Urine Glucose (UA) Negative (Negative) mg/dL Urine Ketones Negative (Negative) mg/dL Ur Blood (Man) Negative (Negative) Urine Nitrate Negative (Negative) Urine Bilirubin Negative (Negative) Urine Urobilinogen 1.0 (<2.0) mg/dL Leukocyte Esterase Rfl Trace H (Negative) STAS/UL Urine RBC 0-2 (0-2) /hpf Urine WBC 0-5 (0-3) /hpf Ur Squamous Epith Cells Occasional (Few) /hpf Urine Bacteria None seen /hpf Urine Casts 0-2 POC Urine HCG, Qual (Negative) Urine Opiates Screen Negative (Negative) Urine Methadone Screen Negative (Negative) Ur Barbiturates Screen Negative (Negative) Ur Phencyclidine Scrn Negative (Negative) Ur Amphetamine Screen Negative (Negative) U Benzodiazepines Scrn Negative (Negative) Urine Cocaine Screen Negative (Negative) U Cannabinoids Screen Negative (Negative) 06/17/24 Range/Units 05:14 WBC (4.5-10.0) K/mm3 RBC (4.2-5.4) M/mm3 Hgb (12.0-15.0) g/dL Hct (37.0-47.0) % MCV (80-100) fl MCH (26-34) pg MCHC (32-36) g/dl RDW (11.5-14.5) % Plt Count (150-375) k/mm3 MPV (7.4-10.4) fl Immature Gran % (Auto) (0-0.5) % Neut % (Auto) (45.5-73.1) % Lymph % (Auto) (18.3-44.2) % Worth % (Auto) (2.6-8.5) % Eos % (Auto) (0-4.4) % Baso % (Auto) (0.2-1.2) % Lymph # (Auto) (0.9-3.2) K/mm3 Worth # (Auto) (0.1-0.6) K/mm3 Eos # (Auto) (0-0.3) K/mm3 Baso # (Auto) (0.0-0.1) K/mm3 Abs Immat Gran (auto) (0.00-0.031) K/mm3 Absolute Neuts (auto) (1.3-6.7) K/mm3 Absolute Nucleated RBC (0.0-0.012) K/mm3 Nucleated RBC % (0.0-0.2) % Sodium (137-145) mmol/L Potassium (3.4-5.0) mmol/L Chloride (98-107) mmol/L Carbon Dioxide (22-30) mmol/L Anion Gap (4-12) mmol/L BUN (7-17) mg/dL Creatinine (0.7-1.0) mg/dL Estim Creat Clear Calc ml/min Estimated GFR (59 - ) Glucose (65-110) mg/dL Lactic Acid (0.7-2.0) mmol/L Calcium (8.4-10.2) mg/dL Magnesium (1.6-2.3) mg/dL Total Bilirubin (0.2-1.3) mg/dL AST (14-36) U/L ALT (6-35) U/L Alkaline Phosphatase (38-126) U/L Total Protein (6.3-8.2) g/dL Albumin (3.5-5.1) g/dL Lipase (23-300) U/L Urine Color (Yellow) Urine Appearance (Clear) Urine pH (5.0-9.0) Ur Specific [place] (1.001-1.035) Urine Protein (Negative) mg/dL Urine Glucose (UA) (Negative) mg/dL Urine Ketones (Negative) mg/dL Ur Blood (Man) (Negative) Urine Nitrate (Negative) Urine Bilirubin (Negative) Urine Urobilinogen (<2.0) mg/dL Leukocyte Esterase Rfl (Negative) STAS/UL Urine RBC (0-2) /hpf Urine WBC (0-3) /hpf Ur Squamous Epith Cells (Few) /hpf Urine Bacteria /hpf Urine Casts POC Urine HCG, Qual Negative (Negative) Urine Opiates Screen (Negative) Urine Methadone Screen (Negative) Ur Barbiturates Screen (Negative) Ur Phencyclidine Scrn (Negative) Ur Amphetamine Screen (Negative) U Benzodiazepines Scrn (Negative) Urine Cocaine Screen (Negative) U Cannabinoids Screen (Negative) Imaging Data Radiologist's impression: ITS Impressions Abdomen/Pelvis CT 06/17/24 06:30 Impression: Questionable mild wall thickening of the descending and sigmoid colon, versus underdistention. Correlate for infectious/inflammatory colitis. Right ovarian cyst versus right hydrosalpinx. Head CT 06/17/24 06:31 Impression: Nonspecific hypodensity in the white matter adjacent to the frontal horn of the left lateral ventricle. This could reflect early onset chronic microvascular ischemic change or chronic ischemic insult. MR can be considered for further evaluation as indicated. ECG Data EKG #1: Attestation: I personally reviewed and interpreted this ECG as follows: ECG completion date: 06/17/24 ECG completion time: 05:56 Interpretation: Normal sinus rhythm at a rate of 66 beats per minute. FL interval 111. QRS 125. QT/QTC 410/423. Right ventricular conduction delay based on the RS are appearance in V1 V2 and V3. Otherwise good R-wave progression across the precordial leads. T-wave flattening versus inversion in 3 but otherwise upright in normal in contiguous inferior leads 2 and AVF. There is also T-wave inversion in V3 though I suspect this is due to lead placement. Discharge Plan Discharge Clinical Impression: Chronic diarrhea, Colitis, Brief loss of consciousness Patient Disposition: Home Condition: Stable Instructions: Antibiotic Form, Chronic Diarrhea (DC), Colitis (ED) Additional Instructions: As we discussed, the movements that you saw might have been due to a seizure however it is also very possible that this represented myoclonic jerking when she fainted/passed out which is also known as syncope. If so, that syncope was likely orthostatic (related to blood pressure) or vasovagal (related to bearing down having a bowel movement). CT abdomen showed. Questionable mild wall thickening of the descending and sigmoid colon, versus underdistention. Correlate for infectious/inflammatory colitis. For this, and given her symptoms have been going on for awhile, recommend proceeding with the upcoming colonoscopy. There was also concern for Right ovarian cyst versus right hydrosalpinx. Follow-up with Ob Gyne. If you do not have 1 the name of 1 is listed below. Acetaminophen/Tylenol is safe to take with NSAIDs (ibuprofen/Motrin) for pain relief. The NSAIDs sometimes provide better relief for the inflammation related to ovarian cyst but can make GI symptoms worse so trial this to see what works. CT brain showed: Nonspecific hypodensity in the white matter adjacent to the frontal horn of the left lateral ventricle. This could reflect early onset chronic microvascular ischemic change or chronic ischemic insult. MR can be considered for further evaluation as indicated. Follow-up with primary care physician on these matters. Return to the emergency department any new, worsening, symptoms Patient Language: Slovak Prescriptions: New acetaminophen 650 mg tablet extended release 650 mg PO Q8H PRN (Reason: pain) Qty: 20 0RF ibuprofen 600 mg tablet 600 mg PO TID PRN (Reason: pain) Qty: 20 0RF No Action lactase 9,000 unit tablet 9,000 unit PO ONCE Rx Instructions: administer with meals and/or snacks-- ONLY with MILK products. melatonin 10 mg tablet 10 mg PO QHS Titus-Life Multivitamin Tablet,Chewable 1 tablet PO DAILY psyllium husk [Daily Fiber] 0.4 gram capsule 0.4 g PO DAILY aspirin [Adult Low Dose Aspirin] 81 mg tablet,delayed release (DR/EC) 81 mg PO DAILY eluxadoline 100 mg tablet 100 mg tablet 0RF levothyroxine [Unithroid] 50 mcg tablet 50 mcg PO DAILY Qty: 90 1RF Follow-up/Referrals: Joan Gomez APN-C [Advanced Practice Nurse] - (Gastroenterology) Lotus Dudley DO [Primary Care Provider] - Santino Garcia MD [Physician] - ([facility] [employer]) Stand Alone Forms: Work/School Release IP Time of Disposition: 06:58
[2024-06-17 04:17] LABS: Alanine Aminotransferase 13 U/L (6-35); Albumin Level 3.9 g/dL (3.5-5.1); Alkaline Phosphatase 46 U/L (38-126); Anion Gap 7 mmol/L (4-12); Aspartate Amino Transferase 25 U/L (14-36); Bilirubin,Total 0.7 mg/dL (0.2-1.3); Blood Urea Nitrogen 11 mg/dL (7-17); Calcium 8.7 mg/dL (8.4-10.2); Carbon Dioxide 29 mmol/L (22-30); Chloride 105 mmol/L (98-107); Estimated CRCL calculation 108 ml/min; Estimated Glomerular Filt Rate > 60; Glucose 93 mg/dL (65-110); Lipase 53 U/L (23-300); Potassium 3.7 mmol/L (3.4-5.0); Sodium 141 mmol/L (137-145)
[2024-06-17 04:38] LABS: Basophils Absolute Auto 0.1 K/mm3 (0.0-0.1); Basophils Percent Auto 0.8 % (0.2-1.2); Eosinophils Percent Auto 0.3 % (0-4.4); Hematocrit 37.8 % (37.0-47.0); Hemoglobin 12.6 g/dL (12.0-15.0); Immature Granulocyte Absolute 0.01 K/mm3 (0.00-0.031); Immature Granulocyte Percent A 0.2 % (0-0.5); Lymphocytes Absolute Auto 1.31 K/mm3 (0.9-3.2); Lymphocytes Percent Auto 22.1 % (18.3-44.2); Mean Corpuscular HGB Conc 33.3 g/dl (32-36); Mean Corpuscular Hemoglobin 34.7 pg (26-34); Mean Corpuscular Volume 104.1 fl (80-100); Mean Platelet Volume 10.9 fl (7.4-10.4); Monocytes Absolute Auto 0.5 K/mm3 (0.1-0.6); Monocytes Percent Auto 8.2 % (2.6-8.5); Neutrophils Absolute Auto 4.1 K/mm3 (1.3-6.7); Neutrophils Percent Auto 68.4 % (45.5-73.1); Platelet Count Result 196 k/mm3 (150-375); Red Blood Count 3.63 M/mm3 (4.2-5.4); Red Cell Distribution Width 13.5 % (11.5-14.5); White Blood Count 5.9 K/mm3 (4.5-10.0)
--- OUTSIDE RECORDS SUMMARY | 2024-06-17 04:47 | XMS_ITS | Clinical Summary ---
Author Organization [facility] Address [address] [place] [address] Care Team Providers Care Press Catcher Name Role Phone Unavailable Primary Care Provider Unavailabl e Source Comments [facility],non-owned Affiliates and Associated Physician Practices is amultiple site organization consisting of ambulatory clinics and hospital sitesin [place], [place], [place] and [place]. This disclosure is being madepursuant to the Care Everywhere program and may not contain all information available regarding this patient. Last updated 17.[employer] [facility] Allergies No known active allergies Medications * [...] on file Legal Sex Female 9:03 PM [employer] Gender Identity Not on file Sexual Orientation Not on file Last Filed Vital Signs Vital Sign Reading Time Taken Comments Blood Pressure 110/68 01/12/2018 11:02 AM [employer] Pulse 80 01/12/2018 11:02 AM [employer] Temperature 36.7 C (98 F) 01/12/2018 11:02 AM [employer] Respiratory Rate 16 01/12/2018 11:02 AM [employer] Oxygen Saturation 98% 01/12/2018 11:02 AM [employer] Inhaled Oxygen Concentration - - Weight 80.7 kg (178 lb) 01/12/2018 11:02 AM [employer] Height 160 cm (5' 3 ) 01/12/2018 11:02 AM [employer] Body Mass Index 31.53 01/12/2018 11:02 AM [employer]IVER Plan of Treatment Health Maintenance Due Date [...]
[2024-06-17 04:55] VITALS: BP 96/71; PULSE 66; RESP 14; TEMP 36.8; O2SAT 100
--- NOTE | 2024-06-17 05:11 | ECG_ITS ---
Test Date: 2024-06-17 05:56:17 Measurements Intervals [place] Rate: 66 P: 31 [place]: 111 QRS: 19 QRSD: 125 T: 35 QT: 410 QTc: 430 Interpretive Statements SINUS RHYTHM WITH SHORT [place] INTERVAL RIGHT BUNDLE BRANCH BLOCK BASELINE ARTIFACT- I, II, III, AVR, AVL, AVF ABNORMAL ECG No previous ECG available for comparison Electronically Signed On 06-17-2024 07:53:42 CDT by Jae Gonzalez D.O.
[2024-06-17] MEDS: SODIUM CHLORIDE 0.9% IV 1,000 ML 999 ML IV CONT (05:14)
[2024-06-17 05:15] LABS: BEDSIDEPREGUCG Negative (Negative)
[2024-06-17 05:28] LABS: Add Urine Microscopic? YES; Appearance Urine Clear (Clear); Bacteria Urine None Seen /hpf; Bilirubin Urine Negative (Negative); Blood Urine Negative (Negative); Color Urine Yellow (Yellow); Glucose Urine UA Negative (Negative); Ketones Urine Negative (Negative); Leukocyte Esterase Ur Trace LEU/UL (Negative); Nitrate Urine Negative (Negative); Non Pathogenic Casts 0-2; Protein Urine Negative (Negative); RBC Urine 0-2 /hpf (0-2); Specific Grav Ur 1.012 (1.001-1.035); Squamous Epithelial Cell Urine Occasional /hpf (Few); WBC Urine 0-5 /hpf (0-3)
[2024-06-17 05:47] LABS: Amphetamine Screen Urine Negative (Negative); Barbiturate Screen Urine Negative (Negative); Benzodiazepines Screen Urine Negative (Negative); Cannabinoid Screen Urine Negative (Negative); Cocaine Screen Urine Negative (Negative); Methadone Screen Urine Negative (Negative); Opiate Screen Urine Negative (Negative); Phencyclidine Screen Urine Negative (Negative)
[2024-06-17 06:41] VITALS: BP 105/68; BP 97/61; PULSE 66; PULSE 68; RESP 13; TEMP 36.6; O2SAT 100
[2024-06-17 06:43] VITALS: BP 102/57; PULSE 72
== END 2024-06-17 07:13 | disposition home or self-care (01) ==
PROVIDERS: Emergency Provider Student in an Organized Health Care Education/Training Program; PCP Family Medicine
DX: K52.9 Noninfective gastroenteritis and colitis, unspecified (principal); K58.0 Irritable bowel syndrome with diarrhea; R55 Syncope and collapse; E07.9 Disorder of thyroid, unspecified; M19.90 Unspecified osteoarthritis, unspecified site; F32.A Depression, unspecified; Z87.74 Personal history of (corrected) congenital malformations of heart and circulatory system; Z86.73 Personal history of transient ischemic attack (TIA), and cerebral infarction without residual deficits; Z86.2 Personal history of diseases of the blood and blood-forming organs and certain disorders involving the immune mechanism; Z79.82 Long term (current) use of aspirin; Z79.899 Other long term (current) drug therapy
CPT/HCPCS: 36415; 70450; 74177; 80053; 80307; 81001; 81025; 83605; 83690; 83735; 85025; 93005; 96360; 99284; J7030; Q9967

== ENCOUNTER 2024-06-23 00:18 | Day surgery (SDC) | payer OTHER, MEDICAID, SELFPAY ==
[2024-06-17 10:51] VITALS: BMI 27.3
--- OUTSIDE RECORDS SUMMARY | 2024-06-23 00:24 | XMS_ITS | Clinical Summary ---
Author Organization [facility] [employer] Address [address] [place] [address] Care Team Providers Care Clinical Specialist Medical Device Name Role Phone Unavailable Primary Care Provider Unavailabl e Source Comments [facility] [employer],non-owned Affiliates and Associated Physician Practices is amultiple site organization consisting of ambulatory clinics and hospital sitesin [place], [place], [place] and [place]. This disclosure is being madepursuant to the Care Everywhere program and may not contain all information available regarding this patient. 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 Gender Identity Not on file Sexual Orientation Not on file Last Filed Vital Signs Vital Sign Reading Time Taken Comments Blood Pressure 110/68 01/12/2018 11:02 AM MUSIC COMPOSER Pulse 80 01/12/2018 11:02 AM MUSIC COMPOSER Temperature 36.7 C (98 F) 01/12/2018 11:02 AM MUSIC COMPOSER Respiratory Rate 16 01/12/2018 11:02 AM MUSIC COMPOSER Oxygen Saturation 98% 01/12/2018 11:02 AM MUSIC COMPOSER Inhaled Oxygen Concentration - - Weight 80.7 kg (178 lb) 01/12/2018 11:02 AM MUSIC COMPOSER Height 160 cm (5' 3 ) 01/12/2018 11:02 AM MUSIC COMPOSER Body Mass Index 31.53 01/12/2018 11:02 AM MUSIC COMPOSER Plan of Treatment Health Maintenance Due Date [...]
--- OUTSIDE RECORDS SUMMARY | 2024-06-23 00:24 | XMS_ITS | Data Portability ---
Author Organization [place] - [email or web address], Main Office Address [address] [place] [address] Assessment Encounter Date Assessment Date Assessment LastModified [...] had a 8 minute TeleMedicine consultation via HowAboutWe to discuss the following: [email or web address] Not available 12/05/2022 20:17:07 Plan of Treatment Reminders Order Date Submit Date Provider Last Modified By Organization Details Last Modified Time Details Appointments None recorded. Lab TSH + free T4, serum 2022 023 [facility], [address] [place] [address], [address], 3 11:25:07 T3, free, serum or plasma 2022 023 [facility], [address] [place] [address], [address], 3 17:37:24 CMP, serum or plasma 2022 023 [facility], [address] [place] [address] [address], [place], [address], 3 11:25:07 thyroid peroxidase (tpo) Ab, serum 2022 023 [facility], [address] [place] [address] [place], [address], 17:37:24 vitamin B12 + folate, serum or blood 2022 023 [facility], [address] [facility], [place], [address], 11:25:07 Referral endocrinol ogy referral 2022 023 SHEA Chapman MD, [address],, [facility], [place], [address], 20:20:44 Procedures None recorded. Surgeries None recorded. Imaging None recorded. Medication Orders Unithroid 50 mcg tablet 2022 023 [id number], [address] [place], [place], [id number], 20:17:39 Creon 36,000 unit-114,0 00 unit-180,0 00 unit capsule,de layed release [email or web address] [place] [address] [id number], [address] [place], [place], [id number], 17:15:00 Patient TargetsNo targets recorded. Patient Instructions Encounter Date Encounter Id Patient Instructions Last Modified By Organization Details Last Modified Time 12/05/2022 [id number] Due to the COVID-19 (Novel Coronavirus) pandemic, it is within this context (and with the understanding that this method of patient encounter is in the patient s best interest as well as the health and safety of other patients and the public) that [facility] is being provided for this patient encounter rather than a [id number]-[id number]-[id number] visit. This patient encounter is appropriate at this time. This patient has been advised of the potential risks and limitations of this mode of treatment (including, but not limited to, the absence of in-person examination) and has agreed to be treated in a remote fashion despite these risks. Any and all of the patient s /patient s family s questions on this issue [...] were discussed and all questions were answered. [email or web address] Not available 12/05/2022 20:20:30 Reason for Referral Endocrinology Referral for H ypothyroidism Referring Physician: Katelin Luong, Endocrinology, Encounter Date: 12/05/2022 Results Created Date Observation Date Name Description Value Unit Range Abnormal Flag Note LastModifiedBy Organization Detail LastModifiedTime 05/31/19 22 05/30/2021 urina lysis , dipst ick Leukocytes (reference range: negative abdelrahman/ l) Negati ve Not Available [facility], [place], [address], 05/30/2021 11:09:05 05/31/19 22 05/30/2021 urina lysis , dipst ick Nitrite (reference rage: negative mg/dl) negati ve Not Available [facility]_[address], [place], [address], 05/30/2021 11:09:05 05/31/19 22 05/30/2021 urina lysis , dipst ick Urobilinogen (reference range: 0.2-1 mg/dl) 0.2 Not Available [address] , [address], [place], [address], 05/30/2021 11:09:05 05/31/19 22 05/30/2021 urina lysis , dipst ick Protein (reference range: negative mg/dl) Negati ve Not Available [address] , [address], [place], [address], 05/30/2021 11:09:05 05/31/19 22 05/30/2021 urina lysis , dipst ick pH (reference range: 5-7) 6.5 Not Available [address] , [address], [place], [address], 05/30/2021 11:09:05 05/31/19 22 05/30/2021 urina lysis , dipst ick Blood (reference range: negative James/ l) Negati ve Not Available [address] , [address], [place], [address], 05/30/2021 11:09:05 05/31/19 22 05/30/2021 urina lysis , dipst ick Specific [place] (reference range: 1.005-1.030) 1.025 Not Available [address] , [address], [place], [address], 05/30/2021 11:09:05 05/31/19 22 05/30/2021 urina lysis , dipst ick Ketone (reference range: negative mg/dl) Negati ve Not Available [address] , [address], [place], [address], 05/30/2021 11:09:05 05/31/19 22 05/30/2021 urina lysis , dipst ick Bilirubin (reference range: negative mg/dl) Negati ve Not Available [address] , [address], [place], [address], 05/30/2021 11:09:05 05/31/19 22 05/30/2021 urina lysis , dipst ick Glucose (reference range: negative mg/dl) Negati ve Not Available [address] , [address], [place], [address], 05/30/2021 11:09:05 05/31/19 22 05/30/2021 urina lysis , dipst ick Appearance Clear Not Available [address] , [address], [place], [address], 05/30/2021 11:09:05 05/31/19 22 05/30/2021 urina lysis , dipst ick Color Yellow Not Available [address], [place], [address], 05/30/2021 11:09:05 Result Notes None recorded. 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 Previously saw Dr Donato with [facility] Not Available [facility] 3 21:50:06 Transient cerebral ischemia 212199271 Active 2014 TIA vs CVA 5 years ago. Started on aspirin afterwards . Last f/u about 2017 Not Available [facility] 3 21:50:07 Hypothyro idism 11884335 Active 2021 Not Available [facility] 3 21:50:07 Bacterial vaginosis 643061754 Active 2019 Recurrent bacterial vaginosis. 3 eipsodes in past few months. Followed by Dr. Mendoza in [place] Not Available [facility] 3 21:50:07 Low blood pressure 17341639 Active 2021 Not Available [facility] 3 21:50:07 Exocrine pancreati c insuffici ency 48087220 Active 2021 Not Available [facility] 3 21:50:07 Anxiety 63542369 Active 2020 Not Available [facility] 3 21:50:07 Diarrhea 79224494 Active 2021 Not Available [facility] 3 21:50:07 Rheumatoi d arthritis 15676163 Active 2004 Onset age 3 to 14 yos. Used mutiple meds (Remicade most recent 2014) Went to Rheumatolo gy at [facility] Not Available [facility] 3 21:50:07 Problem Notes None recorded. Procedures Surgical History Date Name Laterality Status Provider Name and Address Organization Details Recorded Time assessment using ABCD2 Score for transient ischemic attack completed Not Available [facility] 05/03/2022 21:49:02 procedure on heart completed Not Available [facility] 05/03/2022 21:49:02 Imaging Results None recorded. Procedure Notes None recorded. Medical Equipment None Reported. Allergies Allergen ID Allergen Name Allergen Category Reaction Reaction Severity Criticality Documentation Date Start Date Code Code System Note Provider Name and Address Organization Details Recorded Time 05910 lactose food,medi cation Not available Not available Not available 05/03/2022 6211 RxNorm Not Available [facility] 3 21:51:07 70881 amoxicill in medicatio n hives severe Not available 05/03/2022 723 RxNorm Not Available [facility] 3 21:51:07 Medications Name Sig Start Date [...] % 99 % 77 /min 97.8 [degF] 01896.7 4 g 90 mm[Hg] 70 mm[Hg] Not Available [facility] 3 21:49:07 Date Recorded Body height Provider Name an d Address Organization Details Last Updated DateTime 01/25/2022 165.1 cm Not Available [facility] 3 21:49:08 Date Recorded Body height Body mass index (BMI) Body weight Body temperature Respiratory rate Heart rate Systolic blood pressure Diastolic blood pressure Provider Name and Address Organization Details Last Updated DateTime 3 165.1 cm 27.6 kg/m2 64667.3 3 g 97.7 [degF] 18 /min 66 /min 97 mm[Hg] 63 mm[Hg] AMARIS Cheung [employer] 3 17:21:42 Date Recorded Body height Body mass index (BMI) Body weight Provider Name and Address Organization Details Last Updated DateTime 12/05/2022 165.1 cm 27.5 kg/m2 79433.74 g joseph garrido [employer] 12/05/2022 17:17:04 Social History Question Answer Notes LastModified by Organizat ion Details LastModified Time Tobacco Smoking Status Never Smoker Not Available [facility] 05/03/2022 21:48:45 Do You Have An Advance Directive? No [id number] Information not available 05/03/2022 What Is Your Level Of Alcohol Consumption? None [id number] Information not available 05/03/2022 What Is Your Level Of Caffeine Consumption? Occasional [id number] Information not available 05/03/2022 In The 14 Days Before Symptom Onset, Have You Had Close Contact With A Laboratory-confirm ed COVID-19 While That Case Was Ill? No [id number] Information not available 05/03/2022 In The 14 Days Before Symptom Onset, Have You Had Close Contact With A Person Who Is Under Investigation For COVID-19 While That Person Was Ill? No [id number] Information not available 05/03/2022 What Type Of Diet Are You Following? REGULAR [id number] Information not available 05/03/2022 Do You Have A Medical Power Of Bull Bucker? No [id number] Information not available 05/03/2022 Do You Use Any Illicit Or Recreational Drugs? No [id number].[id number] Information not available 05/03/2022 Have You Recently Traveled Abroad? No [id number].[id number] Information not available 05/03/2022 Sex: Female Functional Status Question Answer Note LastModified by Organizat ion Details LastModified Time What is your exercise level? None [id number] Information not available 05/03/2022 Mental Status None recorded. Family History Relationship Description Onset Age of this Age Resolved Age Notes LastModified by Organization Details LastModified Time Maternal Grandmother Family history of malignant neoplasm breast cancer , kidney cancer [id number] Not available 05/03/2022 21:49:02 Maternal Grandmother Chronic obstructive pulmonary disease [id number].369 [id number] Not available 05/03/2022 21:49:02 Maternal Grandmother Irritable bowel syndrome [id number].026 [id number] Not available 05/03/2022 21:49:02 Maternal Grandfather Family history of malignant neoplasm lung, brain [id number].310 [id number] Not available 05/03/2022 21:49:02 Mother Family history of malignant neoplasm thyroi d, sprina l cord [id number].442 [id number] Not available 05/03/2022 21:49:02 Paternal Grandmother Family history of malignant neoplasm append ix [id number] Not available 05/03/2022 21:49:02 Paternal Grandfather Diabetes mellitus [id number].170 [id number] Not available 05/03/2022 21:49:02 Medical History Condition Response OBESITY Y BOWEL PROBLEMS Y STROKE/TIA Y Gynecological HistoryNo gynecological history recorded. Obstetrics History GPAL:G 0 P 0 0 0 0 Immunizations Vaccine Type Date Status Note Provider Nam e and Address Organization Details Recorded Time Influenza, split virus, quadrivalent, preservative 0 completed Not Available [facility] 05/03/2022 21:51:03 HPV9 2 completed Not Available [facility] 05/03/2022 21:51:03 Influenza, split virus, quadrivalent, PF 1 completed Not Available [facility] 05/03/2022 21:51:03 Influenza, split virus, quadrivalent, PF 2 completed Not Available [facility] 05/03/2022 21:51:04 Past Encounters Encounter ID Performer Location Encounter Start Date Encounter Closed Date Diagnosis/Indication Diagnosis SNOMED-CT Code Diagnosis ICD10 Code Diagnosis Note [id number] [facility] [place] [address] 12/20/2020 00:00:00 12/20/2020 16:32:15 [id number] [facility] [place] [address] 05/30/2021 00:00:00 05/30/2021 11:44:07 [id number] [facility] [address] [place] [address] 06/14/2021 00:00:00 06/14/2021 19:45:04 [id number] [facility] [address] [place] [address] 09/06/2021 00:00:00 09/06/2021 13:07:51 [id number] [facility] [place] [address] 01/25/2022 00:00:00 02/21/2022 11:07:52 [id number] Katelin Luong MD [facility] [address] [place] [address] 06/15/2022 16:55:37 06/15/2022 17:48:35 Hypothyroidism 46235411 E03.9 Send for repeat labwork to assess [...] reduce inflammati on. Exocrine p ancreatic insufficiency 27307676 K86.81 elastase low with weight fluctuatio ns [...] she chooses to go outside of the [facility] to obtain labwork she was [...] in her case. She voiced understand ing. [id number] Katelin Luong MD [facility] [address] [place] [address] 12/05/2022 16:54:16 12/05/2022 17:34:33 Hypothyroidism 23527685 E03.9 Thyroid levels in range. continue unithroid [...] Díaz Member ID Guarantor Name 06/15/2022 1 [facility] [id number] Angel Sandoval [id number] [facility] 06/15/2022 2 [place]: [place] [employer] [employer] [facility] [id number] [facility] 12/05/2022 1 [facility] [id number] Angel Sandoval [id number] [facility] 12/05/2022 2 [place] [facility] [place] OF PUBLIC AID [facility] [id number] [facility] Notes Date Note Type Note Provider [...] uIU/mlFT4 of 1.08 ng/dLglucose 85 mg/dLCr normalLFT qpfwcoC59/folate low normal rangeTPO 66 IU/mlFT3 of 2.7 pg/mL elastase low at 188 ug/g (LOW) Katelin Luong MD [address], [address], [place], [address], [employer] 06/15/2022 18:14:09 12/05/2022 text/html 22 yo female [...] Luong MD [address], [address], [place], [address], [employer] 12/05/2022 20:20:48 OBGyn Episode No OBEpisode recorded.
[2024-06-23 12:56] VITALS: BP 97/59; PULSE 72; RESP 18; TEMP 37; O2SAT 100
[2024-06-23] MEDS: LACTATED RINGERS 1,000 ML 150 ML IV CONT (13:24)
--- NOTE | 2024-06-23 13:40 | P.PNAN_ITS ---
Anes - Initial Pre Proc Eval Procedure: Operation Date: 06/23/24 14:00 Proposed Procedures p Colonoscopy - Saúl Hart MD Date/Time: 06/23/24 13:40 Surgeon: Saúl Hart MD Pre Op Diagnosis: Diarrhea, abdominal pain Patient Data Age: 24 Gender: F Height: 1.6 m Weight: 66 kg Last Vital Signs Temp 37.0 C 06/23/24 12:56 Pulse 72 06/23/24 12:56 Resp 18 06/23/24 12:56 BP 97/59 L 06/23/24 12:56 Pulse Ox 100 06/23/24 12:56 O2 Del Method Room Air 06/23/24 12:56 Allergies Allergy/AdvReac Type Severity Reaction Status Date / Time Penicillins Allergy Mild hives Verified 06/23/24 12:53 Home Medications ?Medication ?Instructions ?Recorded ?Confirmed ?Type aspirin 81 mg tablet,delayed 81 mg PO DAILY 01/14/20 06/17/24 History release (Adult Low Dose Aspirin) multivitamin combination no.56 1 tablet PO DAILY 01/14/20 06/17/24 History (Titus-Life Multivitamin chewable tablet) psyllium husk 0.4 gram capsule 0.4 g PO DAILY 01/14/20 06/17/24 History (Daily Fiber) lactase 9,000 unit tablet 9,000 unit PO ONCE 03/15/22 06/17/24 History melatonin 10 mg tablet 10 mg PO QHS 03/15/22 06/17/24 History eluxadoline 100 mg tablet (Viberzi) 100 mg Tablet#2 Samples 04/09/24 06/17/24 Sample Unithroid 50 mcg tablet 50 mcg PO DAILY #90 tabs 04/29/24 06/23/24 Rx (levothyroxine) acetaminophen 650 mg 650 mg PO Q8H PRN pain #20 tabs 06/17/24 06/17/24 Rx tablet,extended release ibuprofen 600 mg tablet 600 mg PO TID PRN pain #20 tabs 06/17/24 06/17/24 Rx eluxadoline 100 mg tablet (Viberzi) 100 mg PO BID 1 month #60 tabs 06/20/24 Rx Laboratory Tests 06/23/24 13:08 Beta HCG, Quant Pending Patient hx anesthesia problems: none Family hx anesthesia problems: none Results Review: All pre-operative results and documents have been reviewed as part of the pre- operative evaluation. [facility] Past Medical History Medical History Abdominal pain Diarrhea Heart chamber dysfunction Thyroid disease Stroke Anemia Arthritis Depression Surgical History Surgical History History of heart surgery Family History Family History Mother Thyroid cancer Spinal cord cancer Father Diabetes mellitus Social History Social History Smoking status: Never smoker Second hand tobacco smoke exposure: No Alcohol intake: never Substance use: never Lack of Transportation: No Lack of Food: Never True Current Housing: I Have Housing Concerned About Future Housing: No Difficulty Paying Gas/Electric Bills: No Difficulty Paying for Meds: No Currently Unemployed: No Education: High School Diploma/GED Difficulty w/ Childcare or Family Care: No Living arrangements: with family Spiritual care concerns: No Anes - Eval Final PreProcedure Day of Procedure 06/23/24 13:40 Patient weight: normal Heart: regular rate and rhythm Lungs: clear to auscultation Airway: Mallampati scale class II Neurological: alert and oriented Last oral intake: >/= 8 hours ASA classification: III Emergent: no Anesthetic plan: proceed Anesthesia type and monitoring: general GIVS and standard monitoring Results Review: All pre-operative results and documents have been reviewed as part of the pre- operative evaluation. Informed Consent: The patient's anesthetic plan and its attendant risks and benefits were discussed with the patient/family/POA. Questions were solicited and answers provided to the satisfaction of the patient/family/POA.
[2024-06-23 13:54] LABS: Beta HCG Quantitative < 2.39 mIU/ML
--- NOTE | 2024-06-23 15:09 | PM.HPGS ---
History of Present Illness History of Present Illness Consent: Risks, benefits, and alternatives have been discussed and questions answered. Patient agrees to proceed with procedure. Chief complaint: Diarrhea, abdominal pain Narrative: Geraldine Sandoval is a 24 year old female with chronic diarrhea, never had colonoscopy, recent ct scan showed possible thickening left colon Review of Systems Review of Systems: All systems reviewed & are unremarkable except as noted in HPI and below PMFSH Past Medical History Medical History Abdominal pain Diarrhea Heart chamber dysfunction Thyroid disease Stroke Anemia Arthritis Depression Surgical History Surgical History History of heart surgery Family History Family History Mother Thyroid cancer Spinal cord cancer Father Diabetes mellitus Social History Social History Smoking status: Never smoker Second hand tobacco smoke exposure: No Alcohol intake: never Substance use: never Lack of Transportation: No Lack of Food: Never True Current Housing: I Have Housing Concerned About Future Housing: No Difficulty Paying Gas/Electric Bills: No Difficulty Paying for Meds: No Currently Unemployed: No Education: High School Diploma/GED Difficulty w/ Childcare or Family Care: No Living arrangements: with family Spiritual care concerns: No Meds Home Medications and Allergies Home Medications ?Medication ?Instructions ?Recorded ?Confirmed ?Type aspirin 81 mg tablet,delayed 81 mg PO DAILY 01/14/20 06/17/24 History release (Adult Low Dose Aspirin) multivitamin combination no.56 1 tablet PO DAILY 01/14/20 06/17/24 History (Titus-Life Multivitamin chewable tablet) psyllium husk 0.4 gram capsule 0.4 g PO DAILY 01/14/20 06/17/24 History (Daily Fiber) lactase 9,000 unit tablet 9,000 unit PO ONCE 03/15/22 06/17/24 History melatonin 10 mg tablet 10 mg PO QHS 03/15/22 06/17/24 History eluxadoline 100 mg tablet (Viberzi) 100 mg Tablet#2 Samples 04/09/24 06/17/24 Sample Unithroid 50 mcg tablet 50 mcg PO DAILY #90 tabs 04/29/24 06/23/24 Rx (levothyroxine) acetaminophen 650 mg 650 mg PO Q8H PRN pain #20 tabs 06/17/24 06/17/24 Rx tablet,extended release ibuprofen 600 mg tablet 600 mg PO TID PRN pain #20 tabs 06/17/24 06/17/24 Rx eluxadoline 100 mg tablet (Viberzi) 100 mg PO BID 1 month #60 tabs 06/20/24 Rx Allergies Allergy/AdvReac Type Severity Reaction Status Date / Time Penicillins Allergy Mild hives Verified 06/23/24 12:53 Vital Signs Vital Signs - 24 hr 06/23/24 12:56 Temperature 98.6 F Pulse Rate 72 Respiratory Rate 18 Blood Pressure 97/59 L Pulse Oximetry 100 Oxygen Delivery Room Air Exam Const: General: comfortable and no acute distress Resp: Auscultation: clear to auscultation bilaterally Cardio: Rate: regular rate Rhythm: regular rhythm GI: Inspection: non-distended GI Palp: Yes Soft to palpation Skin: General skin exam: normal color Neuro: Speech: normal speech Extrem: General: normal to inspection Psych: Mental Status: mental status grossly normal Assessment and Plan Assessment and plan (1) Diarrhea: Code(s): R19.7 - Diarrhea, unspecified Status: Acute Assessment and Plan: colonoscopy with random colon bx (2) Down syndrome: Code(s): Q90.9 - Down syndrome, unspecified Status: Acute
[2024-06-23 15:23] VITALS: BP 86/57; PULSE 61; RESP 14; O2SAT 96
[2024-06-23 15:32] VITALS: BP 104/67; PULSE 60; RESP 17; O2SAT 100
[2024-06-23 15:42] VITALS: BP 116/78; PULSE 67; RESP 16; O2SAT 100
== END 2024-06-23 15:53 | disposition home or self-care (01) ==
PROVIDERS: Anesthesiology; PCP Family Medicine; Referring Provider Nurse Practitioner Family; Visit Provider Internal Medicine Gastroenterology
PROC: 0DJD8ZZ Inspection of Lower Intestinal Tract, Via Natural or Artificial Opening Endoscopic (ICD-10-PCS; CPT 45378; principal; 2024-06-23 14:00)
DX: R19.7 Diarrhea, unspecified (principal); E07.9 Disorder of thyroid, unspecified; D64.9 Anemia, unspecified; F32.A Depression, unspecified; Q90.9 Down syndrome, unspecified; M19.90 Unspecified osteoarthritis, unspecified site; Z79.82 Long term (current) use of aspirin; Z79.1 Long term (current) use of non-steroidal anti-inflammatories (NSAID); Z98.890 Other specified postprocedural states; Z86.79 Personal history of other diseases of the circulatory system; Z86.73 Personal history of transient ischemic attack (TIA), and cerebral infarction without residual deficits; Z80.8 Family history of malignant neoplasm of other organs or systems
CPT/HCPCS: 45380; 36415; 84702; 88305; J2704; J7120